=== PATIENT | male | born 1980 | race Caucasian/White ===

== ENCOUNTER 2017-07-02 13:38 | Emergency (ER) | payer MEDICAID ==
[~2017-07-02] VITALS: Ht 188 cm; Wt 108.4 kg
[~2017-07-02 13:38] MED LIST: ACET-929; ALBU18; ALPR1TAB7; METO25TA5; MORP1TAB13; PAROXETINE; TRAZ50TA2
[2017-07-02 15:00] VITALS: BP 118/55
== END 2017-07-02 16:30 | disposition home or self-care (01) ==
LOC: ER 13:38
DX: S63.502A Unspecified sprain of left wrist, initial encounter (principal); S60.222A Contusion of left hand, initial encounter; F17.210 Nicotine dependence, cigarettes, uncomplicated; J45.909 Unspecified asthma, uncomplicated; I10 Essential (primary) hypertension; Z79.899 Other long term (current) drug therapy; W22.8XXA Striking against or struck by other objects, initial encounter; Y93.89 Activity, other specified; Y92.89 Other specified places as the place of occurrence of the external cause; Y99.8 Other external cause status
CPT/HCPCS: 73110; 73130

== ENCOUNTER 2017-12-27 08:27 | Inpatient (IN) | payer MEDICAID ==
[~2017-12-27] VITALS: Ht 182.9 cm; Wt 108.8 kg
[2017-12-27] MEDS ORDERED: SODIUM CHLORIDE 0.9% 1,000 ML IVB ONE (08:41)
[2017-12-27] MEDS ORDERED: SODIUM CHLORIDE 0.9% 1,000 ML IV ONE ×2 (08:41→14:15)
[2017-12-27] MEDS ORDERED: KETOROLAC TROMETH 30 MG/ML 1ML VIAL IV ONE (08:45)
[2017-12-27] MEDS ORDERED: PROMETHAZINE HCL 25 MG/ML 1ML IV PRN (08:45)
[2017-12-27] MEDS ORDERED: metroNIDAZOLE 500MG/100ML 100 ML IV ONE (09:30)
[2017-12-27 11:50] LABS: Basophils # (auto) 0 uL; Basophils % (auto) 0.4 % (0.0-2.0); Eosinophils # (auto) 0 uL; Eosinophils % (auto) 0.3 % (0.0-7.0); Hematocrit 52.4 % (41.0-53.0); Lymphocytes # (auto) 1.2 uL; Lymphocytes % (auto) 14.2 % (10.0-50.0); Mean Corpuscular Hemoglobin 30.3 pg (28.0-32.0); Mean Corpuscular Hgb Conc. 34.4 g/dL (32.0-36.0); Mean Corpuscular Volume 88.1 fL (80.0-100.0); Monocytes # (auto) 0.6 uL; Monocytes % (auto) 7.5 % (0.0-12.0); Neutrophils # (auto) 6.3 uL; Neutrophils % (auto) 77.6 % (37.0-80.0); Nucleated Red Blood Cells % 0.2 %; Platelet Count (auto) 179 10^3/uL (140-450); Red Blood Cells 5.95 10^6/uL (4.5-5.90); Red Cell Distribution Width 14.2 % (11.8-14.3); White Blood Cell 8.1 10^3/uL (4.4-10.8)
[2017-12-27 11:59] LABS: INR 0.96 (0.9-1.15); Partial Thromboplastin Time 28.8 sec (23.78-33.04); Prothrombin Time 10.3 sec (9.27-12.13)
[2017-12-27 12:07] LABS: Alanine Aminotransferase 54 U/L (16-61); Albumin 3.7 g/dL (3.4-5.0); Alkaline Phosphatase 61 U/L (45-117); Amylase 75 U/L (25-115); Anion Gap 10 (5-15); Aspartate Aminotransferase 22 U/L (15-37); BUN/Creatinine Ratio 8.1; Bilirubin, Total 0.4 mg/dL (0.2-1.0); Blood Urea Nitrogen 6 mg/dL (7-18); Calcium 8.9 mg/dL (8.5-10.1); Carbon Dioxide 23 mmol/L (21-32); Chloride 108 mmol/L (98-107); GFR African American 155 mL/min; GFR Non-African American 128 mL/min; Glucose 91 mg/dL (74-106); Lipase 185 U/L (73-393); Potassium 3.5 mmol/L (3.5-5.1); Sodium 141 mmol/L (136-145); Total Protein 7.9 g/dL (6.4-8.2)
[2017-12-27 12:22] LABS: Urine Bacteria NONE SEEN /hpf (None Seen); Urine Blood Negative /uL (Negative); Urine Mucus FEW (None Seen); Urine Specific Gravity 1.024 (1.001-1.035); Urine WBC 3 /hpf (0 - 3)
[2017-12-27 12:39] LABS: Amphetamine Screen, Urine POSITIVE (NEGATIVE); Barbiturate Scree,Urine NEGATIVE (NEGATIVE); Benzodiazephine Screen, Urine POSITIVE (NEGATIVE); Cannabinoid Screen, Urine POSITIVE (NEGATIVE); Cocaine Screen, Urine NEGATIVE (NEGATIVE); Opiate Scree,Urine NEGATIVE (NEGATIVE); Phencyclidine Screen, Urine NEGATIVE (NEGATIVE)
[2017-12-27] MEDS ORDERED: cefTRIAXone 1GM/10ml IVPUSH 10 ML IV ONE (14:00)
[2017-12-27] MEDS ORDERED: NITROGLYCERIN 0.4 MG SL TAB SL PRN (14:15)
[2017-12-27] MEDS ORDERED: MORPHINE SULF(PF) 0.5MG/ML 10ML VIAL IV PRN (14:15)
[2017-12-27] MEDS ORDERED: TEMAZEPAM 15 MG CAP PO PRN (14:15)
[2017-12-27] MEDS ORDERED: ACETAMINOPHEN 325 MG TAB PO PRN (14:15)
[2017-12-27] MEDS ORDERED: DOCUSATE SOD 100 MG CAP PO PRN (14:15)
[2017-12-27] MEDS ORDERED: NALBUPHINE HCL 10 MG/1ml INJECTION IV PRN (14:30)
[2017-12-27] MEDS: SODIUM CHLORIDE 0.9% 1,000 ML IV SCH (15:29)
[2017-12-27 15:33] LABS: Lactic Acid w/Reflex 2.6 mmol/L (0.4-2.0)
[2017-12-27] MEDS ORDERED: GOLYTELY 4L KIT PO ONE (15:45)
[2017-12-27] MEDS: HYDROcodone-ACET 5/325MG TAB PO PRN ×2 (16:55→21:12)
[2017-12-27] MEDS: ONDANSETRON HCL 4 MG/2 ML VIAL IV PRN ×2 (16:55→21:15)
[2017-12-27] MEDS: ALPRAZolam 0.5 MG TAB PO PRN (17:10)
[2017-12-27 17:32] VITALS: BP 136/88
[2017-12-27] MEDS: ALBUTEROL SULF 2.5 MG/0.5ML(0.5%) NEB SOLN NEB PRN (17:35)
[2017-12-27] MEDS ORDERED: MONT5CHW17 PO (18:40)
[2017-12-27] MEDS ORDERED: FLUT110A INH (18:40)
[2017-12-27] MEDS ORDERED: CHOL20007 PO (18:40)
[2017-12-27] MEDS ORDERED: AMPH10TA21 PO (18:40)
[2017-12-27] MEDS ORDERED: VEN75XRT PO (18:40)
[2017-12-27] MEDS ORDERED: BREX1TAB2 PO (18:41)
[2017-12-27 19:45] VITALS: BP 136/88
[2017-12-27] MEDS: VENLAFAXINE HCL 25MG TABLET PO SCH (21:13)
[2017-12-27] MEDS: metroNIDAZOLE 500MG/100ML 100 ML IV SCH (21:14)
[2017-12-27] MEDS: FAMOTIDINE 20 MG TAB PO SCH (21:14)
[2017-12-27] MEDS: DEXTROAMPHETAMINE PO SCH (21:33)
[2017-12-27] MEDS: AMPHETAMINE PO SCH (21:33)
[2017-12-27 22:00] VITALS: BP 129/79
[2017-12-28] MEDS: ALPRAZolam 0.5 MG TAB PO PRN ×3 (01:08→21:08)
[2017-12-28] MEDS: SODIUM CHLORIDE 0.9% 1,000 ML IV SCH ×3 (04:58→15:13)
[2017-12-28 05:00] VITALS: BP 127/67
[2017-12-28] MEDS: HYDROcodone-ACET 5/325MG TAB PO PRN ×3 (05:08→21:09)
[2017-12-28] MEDS: ONDANSETRON HCL 4 MG/2 ML VIAL IV PRN (05:09)
[2017-12-28] MEDS: DEXTROAMPHETAMINE PO SCH ×3 (05:36→21:03)
[2017-12-28] MEDS: AMPHETAMINE PO SCH ×3 (05:36→21:03)
[2017-12-28 05:37] LABS: Basophils # (auto) 0 uL; Basophils % (auto) 0.5 % (0.0-2.0); Eosinophils # (auto) 0.1 uL; Eosinophils % (auto) 1.5 % (0.0-7.0); Hematocrit 43.6 % (41.0-53.0); Hemoglobin 14.9 g/dL (13.5-17.5); Lymphocytes % (auto) 36.4 % (10.0-50.0); Mean Corpuscular Hemoglobin 30.7 pg (28.0-32.0); Mean Corpuscular Hgb Conc. 34.3 g/dL (32.0-36.0); Mean Corpuscular Volume 89.7 fL (80.0-100.0); Monocytes # (auto) 0.7 uL; Monocytes % (auto) 12.4 % (0.0-12.0); Neutrophils # (auto) 2.7 uL; Neutrophils % (auto) 49.2 % (37.0-80.0); Nucleated Red Blood Cells % 0.1 %; Platelet Count (auto) 151 10^3/uL (140-450); Red Blood Cells 4.86 10^6/uL (4.5-5.90); Red Cell Distribution Width 13.8 % (11.8-14.3); White Blood Cell 5.6 10^3/uL (4.4-10.8)
[2017-12-28] MEDS: metroNIDAZOLE 500MG/100ML 100 ML IV SCH ×3 (05:37→21:02)
[2017-12-28] MEDS: VENLAFAXINE HCL 25MG TABLET PO SCH ×3 (05:37→21:03)
[2017-12-28 05:59] LABS: Albumin 3.1 g/dL (3.4-5.0); BUN/Creatinine Ratio 7.9; Bilirubin, Total 0.2 mg/dL (0.2-1.0); Calcium 8.3 mg/dL (8.5-10.1); Potassium 3.9 mmol/L (3.5-5.1); Total Protein 6.5 g/dL (6.4-8.2)
[2017-12-28] MEDS ORDERED: GOLYTELY 4L KIT PO ONE (06:00)
[2017-12-28] MEDS ORDERED: SODIUM CHLORIDE LOCK 10 ML ONE (08:43)
[2017-12-28] MEDS ORDERED: diphenhdrAMINE HCL 50 MG/1 ML VL ONE (08:44)
[2017-12-28 09:00] VITALS: BP 112/77
[2017-12-28] MEDS: cefTRIAXone 1GM/10ml IVPUSH 10 ML IV SCH (09:24)
[2017-12-28] MEDS: ALBUTEROL SULF 2.5 MG/0.5ML(0.5%) NEB SOLN NEB PRN ×3 (09:32→20:45)
[2017-12-28] MEDS: FAMOTIDINE 20 MG TAB PO SCH ×2 (10:00→21:03)
[2017-12-28] MEDS: METOPROLOL SUCCINATE XL 50 MG TAB PO SCH (10:00)
[2017-12-28] MEDS: MIDAZOLAM HCL 5 MG/ML-1ML VIAL ONE ×3 (11:17→11:24)
[2017-12-28] MEDS: fentaNYL CITRATE 100 MCG/2 ML VL ONE ×2 (11:17→11:20)
[2017-12-28] MEDS ORDERED: MIDAZOLAM HCL 5 MG/ML-1ML VIAL ONE (11:20)
[2017-12-28] MEDS ORDERED: fentaNYL CITRATE 100 MCG/2 ML VL ONE (11:20)
[2017-12-28 13:00] VITALS: BP 117/74
[2017-12-28] MEDS: BREXPIPRAZOLE 3 MG PO SCH (16:54)
[2017-12-28] MEDS: MULTIPLE VITAMIN TAB PO SCH (16:54)
[2017-12-28 16:56] VITALS: BP 133/80
[2017-12-28] MEDS ORDERED: SODIUM CHLORIDE 0.9% 500 ML IV ONE (17:45)
[2017-12-29 05:29] VITALS: BP 119/65
[2017-12-29] MEDS: DEXTROAMPHETAMINE PO SCH ×3 (05:47→21:17)
[2017-12-29] MEDS: SODIUM CHLORIDE 0.9% 1,000 ML IV SCH ×3 (05:47→19:54)
[2017-12-29] MEDS: AMPHETAMINE PO SCH ×3 (05:47→21:17)
[2017-12-29] MEDS: metroNIDAZOLE 500MG/100ML 100 ML IV SCH ×2 (05:47→14:16)
[2017-12-29] MEDS: VENLAFAXINE HCL 25MG TABLET PO SCH ×3 (05:48→21:18)
[2017-12-29 06:02] LABS: Basophils # (auto) 0 uL; Basophils % (auto) 0.4 % (0.0-2.0); Eosinophils # (auto) 0.1 uL; Eosinophils % (auto) 1.8 % (0.0-7.0); Hematocrit 41.6 % (41.0-53.0); Hemoglobin 14.2 g/dL (13.5-17.5); Lymphocytes # (auto) 2.1 uL; Lymphocytes % (auto) 37.4 % (10.0-50.0); Mean Corpuscular Hemoglobin 30.4 pg (28.0-32.0); Mean Corpuscular Volume 89.4 fL (80.0-100.0); Monocytes # (auto) 0.5 uL; Monocytes % (auto) 9.7 % (0.0-12.0); Neutrophils # (auto) 2.8 uL; Neutrophils % (auto) 50.7 % (37.0-80.0); Platelet Count (auto) 170 10^3/uL (140-450); Red Blood Cells 4.66 10^6/uL (4.5-5.90); Red Cell Distribution Width 13.7 % (11.8-14.3); White Blood Cell 5.6 10^3/uL (4.4-10.8)
[2017-12-29 06:21] LABS: Potassium 3.7 mmol/L (3.5-5.1)
[2017-12-29] MEDS: HYDROcodone-ACET 5/325MG TAB PO PRN ×2 (06:24→23:12)
[2017-12-29 06:34] LABS: Albumin 2.9 g/dL (3.4-5.0); Calcium 8.1 mg/dL (8.5-10.1)
[2017-12-29 06:36] LABS: Bilirubin, Total 0.2 mg/dL (0.2-1.0); Total Protein 6.2 g/dL (6.4-8.2)
[2017-12-29] MEDS: ALBUTEROL SULF 2.5 MG/0.5ML(0.5%) NEB SOLN NEB PRN ×2 (07:58→15:32)
[2017-12-29 08:00] VITALS: BP 125/72
[2017-12-29] MEDS: BOOST PLUS 8 ounce PO SCH ×3 (08:00→18:00)
[2017-12-29] MEDS: cefTRIAXone 1GM/10ml IVPUSH 10 ML IV SCH (09:27)
[2017-12-29] MEDS: FAMOTIDINE 20 MG TAB PO SCH ×2 (09:27→21:18)
[2017-12-29] MEDS: MULTIPLE VITAMIN TAB PO SCH (09:27)
[2017-12-29] MEDS: METOPROLOL SUCCINATE XL 50 MG TAB PO SCH (09:27)
[2017-12-29] MEDS: BREXPIPRAZOLE 3 MG PO SCH (10:00)
[2017-12-29] MEDS: ALPRAZolam 0.5 MG TAB PO PRN ×2 (11:17→20:12)
[2017-12-29 12:00] VITALS: BP 132/73
[2017-12-29] MEDS ORDERED: ALBUTEROL SULF 2.5 MG/0.5ML(0.5%) NEB SOLN NEB PRN (15:45)
[2017-12-29] MEDS ORDERED: PHENYLEPHRINE HCL 0.5 % NASAL SPRAY 15ML PRN (15:45)
[2017-12-29 17:00] VITALS: BP 128/85
[2017-12-29] MEDS: ALBUTEROL SULF 2.5 MG/0.5ML(0.5%) NEB SOLN NEB SCH (18:21)
[2017-12-29] MEDS: metroNIDAZOLE 500 MG TAB PO SCH ×2 (19:53→23:12)
[2017-12-29 22:38] VITALS: BP 154/80
[2017-12-30] MEDS: ALBUTEROL SULF 2.5 MG/0.5ML(0.5%) NEB SOLN NEB SCH ×3 (00:14→11:08)
[2017-12-30] MEDS: SODIUM CHLORIDE 0.9% 1,000 ML IV SCH (00:47)
[2017-12-30 05:37] LABS: Basophils # (auto) 0 uL; Basophils % (auto) 0.5 % (0.0-2.0); Eosinophils # (auto) 0.1 uL; Eosinophils % (auto) 1.7 % (0.0-7.0); Hematocrit 44.9 % (41.0-53.0); Hemoglobin 15.4 g/dL (13.5-17.5); Lymphocytes # (auto) 2.4 uL; Lymphocytes % (auto) 36.8 % (10.0-50.0); Mean Corpuscular Hemoglobin 30.3 pg (28.0-32.0); Mean Corpuscular Hgb Conc. 34.3 g/dL (32.0-36.0); Mean Corpuscular Volume 88.3 fL (80.0-100.0); Monocytes # (auto) 0.5 uL; Monocytes % (auto) 7.6 % (0.0-12.0); Neutrophils # (auto) 3.5 uL; Neutrophils % (auto) 53.4 % (37.0-80.0); Platelet Count (auto) 186 10^3/uL (140-450); Red Blood Cells 5.08 10^6/uL (4.5-5.90); Red Cell Distribution Width 13.9 % (11.8-14.3); White Blood Cell 6.6 10^3/uL (4.4-10.8)
[2017-12-30] MEDS: VENLAFAXINE HCL 25MG TABLET PO SCH (05:56)
[2017-12-30] MEDS: AMPHETAMINE PO SCH (05:57)
[2017-12-30] MEDS: metroNIDAZOLE 500 MG TAB PO SCH ×2 (05:57→11:37)
[2017-12-30] MEDS: DEXTROAMPHETAMINE PO SCH (05:57)
[2017-12-30 05:59] VITALS: BP 121/79
[2017-12-30 06:09] LABS: Calcium 8.5 mg/dL (8.5-10.1); Potassium 3.7 mmol/L (3.5-5.1)
[2017-12-30] MEDS: BOOST PLUS 8 ounce PO SCH (08:00)
[2017-12-30] MEDS: ALPRAZolam 0.5 MG TAB PO PRN (08:23)
[2017-12-30] MEDS: HYDROcodone-ACET 5/325MG TAB PO PRN (08:23)
[2017-12-30 08:30] VITALS: BP 131/73
[2017-12-30] MEDS: cefTRIAXone 1GM/10ml IVPUSH 10 ML IV SCH (10:15)
[2017-12-30] MEDS: MULTIPLE VITAMIN TAB PO SCH (10:15)
[2017-12-30] MEDS: FAMOTIDINE 20 MG TAB PO SCH (10:15)
[2017-12-30] MEDS: METOPROLOL SUCCINATE XL 50 MG TAB PO SCH (10:15)
[2017-12-30 13:04] VITALS: BP 131/73
== END 2017-12-30 13:50 | disposition home or self-care (01) | DRG 720 ==
LOC: ER 08:27 → TELE 08:28 → TELE-CENTR 16:45
PROVIDERS: ADMIT Internal Medicine; ATTEND Internal Medicine
PROC: 0DBE8ZX Excision of Large Intestine, Via Natural or Artificial Opening Endoscopic, Diagnostic (ICD-10-PCS; 2017-12-28)
PROC: 0DBB8ZX Excision of Ileum, Via Natural or Artificial Opening Endoscopic, Diagnostic (ICD-10-PCS; principal; 2017-12-28 11:15)
DX: A41.9 Sepsis, unspecified organism (principal); A04.72 Enterocolitis due to Clostridium difficile, not specified as recurrent; E44.0 Moderate protein-calorie malnutrition; F12.10 Cannabis abuse, uncomplicated; E86.0 Dehydration; F90.9 Attention-deficit hyperactivity disorder, unspecified type; F17.210 Nicotine dependence, cigarettes, uncomplicated; F41.9 Anxiety disorder, unspecified; I10 Essential (primary) hypertension; J45.909 Unspecified asthma, uncomplicated; K52.9 Noninfective gastroenteritis and colitis, unspecified; K57.90 Diverticulosis of intestine, part unspecified, without perforation or abscess without bleeding; K64.8 Other hemorrhoids; F31.9 Bipolar disorder, unspecified; Z91.010 Allergy to peanuts; Z68.32 Body mass index [BMI] 32.0-32.9, adult
CPT/HCPCS: 36415; 74176; 80048; 80053; 80307; 81001; 82150; 83605; 83690; 84484; 85025; 85610; 85730; 86850; 86900; 86901; 87040; 87045; 87493; 87899; 93005; 94640; 96361; 96365; 96375; J1885; J2250; J2405; J3490

== ENCOUNTER 2019-06-30 03:19 | Emergency (ER) | payer MEDICAID ==
[~2019-06-30] VITALS: Ht 188 cm; Wt 122.9 kg
[~2019-06-30 03:19] MED LIST changes: +ALBUTEROL SULF 2.5 MG/0.5ML(0.5%) NEB SOLN NEB ONE; +AMPH10TA2 PO; +BREX1TAB2 PO; +CHOL20007 PO; +FLUT110A INH; +IPRATROPIUM BROM 0.5 MG/2.5ML INH SOL NEB ONE; +MONT5CHW17 PO; -MORP1TAB13; -TRAZ50TA2; +VENL75CA3 PO
[2019-06-30 03:59] LABS: Basophils # (auto) 0.1 uL; Basophils % (auto) 0.7 % (0.0-2.0); Eosinophils # (auto) 0.2 uL; Eosinophils % (auto) 3.3 % (0.0-7.0); Hematocrit 48.4 % (41.0-53.0); Hemoglobin 16.6 g/dL (13.5-17.5); Lymphocytes # (auto) 2.6 uL; Mean Corpuscular Hgb Conc. 34.3 g/dL (32.0-36.0); Mean Corpuscular Volume 90.4 fL (80.0-100.0); Monocytes # (auto) 0.6 uL; Monocytes % (auto) 9.1 % (0.0-12.0); Neutrophils # (auto) 3.5 uL; Neutrophils % (auto) 49.9 % (37.0-80.0); Nucleated Red Blood Cells % 0.1 %; Platelet Count (auto) 210 10^3/uL (140-450); Red Blood Cells 5.36 10^6/uL (4.5-5.90); Red Cell Distribution Width 13.6 % (11.8-14.3)
[2019-06-30 04:00] VITALS: BP 138/106
[2019-06-30 04:14] LABS: Potassium 4.7 mmol/L (3.5-5.1)
[2019-06-30 04:20] LABS: Albumin 3.8 g/dL (3.4-5.0); BUN/Creatinine Ratio 15.6; Bilirubin, Total 0.3 mg/dL (0.2-1.0); Calcium 8.9 mg/dL (8.5-10.1); Total Protein 7.9 g/dL (6.4-8.2)
== END 2019-06-30 05:45 | disposition left against medical advice (07) ==
LOC: ER 03:21
DX: R06.02 Shortness of breath (principal); Z53.21 Procedure and treatment not carried out due to patient leaving prior to being seen by health care provider
CPT/HCPCS: 36415; 71045; 80053; 85025; 94640

== ENCOUNTER 2020-02-06 03:51 | Emergency (ER) | payer MEDICAID ==
[~2020-02-06] VITALS: Ht 188 cm; Wt 115.2 kg
[~2020-02-06 03:51] MED LIST changes: -ALBUTEROL SULF 2.5 MG/0.5ML(0.5%) NEB SOLN NEB ONE; -IPRATROPIUM BROM 0.5 MG/2.5ML INH SOL NEB ONE
[2020-02-06] MEDS ORDERED: HYDROcodone-ACET 10/325MG TAB PO ONE (07:45)
[2020-02-06 07:48] VITALS: BP 117/76
== END 2020-02-06 09:23 | disposition home or self-care (01) ==
LOC: ER 03:55
DX: L03.115 Cellulitis of right lower limb (principal); F41.9 Anxiety disorder, unspecified; J45.909 Unspecified asthma, uncomplicated; F32.9 Major depressive disorder, single episode, unspecified; I10 Essential (primary) hypertension; F17.210 Nicotine dependence, cigarettes, uncomplicated; Z91.010 Allergy to peanuts; Z79.899 Other long term (current) drug therapy
CPT/HCPCS: 73610; 73630; 93971

== ENCOUNTER 2020-05-17 09:24 | Emergency (ER) | payer MEDICAID ==
[~2020-05-17] VITALS: Ht 188 cm; Wt 113.4 kg
[2020-05-17 09:41] VITALS: BP 123/71
[2020-05-17] MEDS ORDERED: PENICILLIN G BENZ 1200000 UNITS/2 ML SYRG IM ONE (11:15)
== END 2020-05-17 11:28 | disposition home or self-care (01) ==
LOC: ER 09:24
DX: A53.9 Syphilis, unspecified (principal); J45.909 Unspecified asthma, uncomplicated; I10 Essential (primary) hypertension; F17.210 Nicotine dependence, cigarettes, uncomplicated
CPT/HCPCS: 96372; 99283; J0561

== ENCOUNTER 2020-05-24 07:29 | Emergency (ER) | payer MEDICAID ==
[~2020-05-24] VITALS: Ht 188 cm; Wt 108.0 kg
[2020-05-24 07:38] VITALS: BP 114/78
[2020-05-24] MEDS ORDERED: PENICILLIN G BENZ 1200000 UNITS/2 ML SYRG IM ONE (08:00)
== END 2020-05-24 09:02 | disposition home or self-care (01) ==
LOC: ER 07:29
DX: A53.9 Syphilis, unspecified (principal); J45.909 Unspecified asthma, uncomplicated; I10 Essential (primary) hypertension; F17.210 Nicotine dependence, cigarettes, uncomplicated; F12.10 Cannabis abuse, uncomplicated
CPT/HCPCS: 96372; 99283; J0561

== ENCOUNTER 2020-05-31 07:02 | Emergency (ER) | payer MEDICAID ==
[~2020-05-31] VITALS: Ht 182.9 cm; Wt 95.3 kg
[2020-05-31] MEDS ORDERED: PENICILLIN G BENZ 1200000 UNITS/2 ML SYRG IM ONE (07:45)
[2020-05-31] MEDS ORDERED: KETOROLAC TROMETH 60MG/2ML VIAL IM ONE (07:45)
[2020-05-31 07:56] VITALS: BP 128/78
== END 2020-05-31 08:25 | disposition home or self-care (01) ==
LOC: ER 07:02
DX: A53.9 Syphilis, unspecified (principal); J45.909 Unspecified asthma, uncomplicated; I10 Essential (primary) hypertension; F17.210 Nicotine dependence, cigarettes, uncomplicated; Z91.010 Allergy to peanuts
CPT/HCPCS: 96372; 99283; J0561

== ENCOUNTER 2020-08-31 03:32 | Emergency (ER) | payer MEDICAID ==
[~2020-08-31] VITALS: Ht 188 cm; Wt 104.3 kg
[~2020-08-31 03:32] MED LIST changes: -MONT5CHW17 PO; +MONT5CHW23 PO
[2020-08-31] MEDS ORDERED: ONDANSETRON HCL 4 MG/2 ML VIAL IV ONE (04:15)
[2020-08-31 04:42] LABS: Urine Bacteria MOD /hpf (None Seen); Urine Blood 2+ /uL (Negative); Urine Hyaline Cast MANY /lpf (0 - 2); Urine Mucus FEW (None Seen); Urine Specific Gravity 1.028 (1.001-1.035); Urine WBC 6 /hpf (0 - 3); Urine WBC Clumps PRESENT /hpf (None Seen)
[2020-08-31 04:59] LABS: Amphetamine Screen, Urine POSITIVE (NEGATIVE); Barbiturate Scree,Urine NEGATIVE (NEGATIVE); Benzodiazephine Screen, Urine POSITIVE (NEGATIVE); Cannabinoid Screen, Urine POSITIVE (NEGATIVE); Cocaine Screen, Urine NEGATIVE (NEGATIVE); Opiate Scree,Urine NEGATIVE (NEGATIVE); Phencyclidine Screen, Urine NEGATIVE (NEGATIVE)
[2020-08-31 05:37] LABS: Basophils # (auto) 0 10 ^3/uL (0-0.2); Basophils % (auto) 0.5 % (0.0-2.0); Eosinophils # (auto) 0.1 10 ^3/uL (0-0.8); Eosinophils % (auto) 0.9 % (0.0-7.0); Hematocrit 46.8 % (41.0-53.0); Hemoglobin 16.6 g/dL (13.5-17.5); Lymphocytes # (auto) 2.2 10 ^3/uL (0.4-5.4); Lymphocytes % (auto) 22.9 % (10.0-50.0); Mean Corpuscular Hgb Conc. 35.5 g/dL (32.0-36.0); Mean Corpuscular Volume 87.3 fL (80.0-100.0); Monocytes # (auto) 0.5 10 ^3/uL (0-1.3); Monocytes % (auto) 5.7 % (0.0-12.0); Neutrophils # (auto) 6.8 10 ^3/uL (1.6-8.6); Nucleated Red Blood Cells % 0.1 %; Platelet Count (auto) 209 10^3/uL (140-450); Red Blood Cells 5.36 10^6/uL (4.5-5.90); Red Cell Distribution Width 13.7 % (11.8-14.3); White Blood Cell 9.7 10^3/uL (4.4-10.8)
[2020-08-31 05:55] LABS: Albumin 3.8 g/dL (3.4-5.0); BUN/Creatinine Ratio 12.8; Calcium 8.9 mg/dL (8.5-10.1); Potassium 3.7 mmol/L (3.5-5.1)
[2020-08-31 05:58] LABS: Bilirubin, Total 0.4 mg/dL (0.2-1.0); Total Protein 7.7 g/dL (6.4-8.2)
[2020-08-31] MEDS ORDERED: IOHEXOL 300 MG/ML 100ML BOTTLE IJ ONE (07:34)
[2020-08-31 08:19] VITALS: BP 130/77
== END 2020-08-31 08:51 | disposition home or self-care (01) ==
LOC: ER 03:32
DX: R10.84 Generalized abdominal pain (principal); F19.10 Other psychoactive substance abuse, uncomplicated; F12.10 Cannabis abuse, uncomplicated; F17.210 Nicotine dependence, cigarettes, uncomplicated; J44.9 Chronic obstructive pulmonary disease, unspecified; I10 Essential (primary) hypertension; Z87.442 Personal history of urinary calculi
CPT/HCPCS: 36415; 74177; 80053; 80307; 81001; 83690; 85025; 96374; 99285; J2405; Q9967

== ENCOUNTER 2020-12-29 09:24 | Emergency (ER) | payer MEDICAID ==
[~2020-12-29] VITALS: Ht 188 cm; Wt 88.5 kg
[2020-12-29 10:04] LABS: Albumin 3.7 g/dL (3.4-5.0); Calcium 8.5 mg/dL (8.5-10.1)
[2020-12-29 10:07] LABS: BUN/Creatinine Ratio 10.5; Bilirubin, Total 0.4 mg/dL (0.2-1.0); Total Protein 7.6 g/dL (6.4-8.2)
[2020-12-29 10:14] LABS: Basophils # (auto) 0 10 ^3/uL (0-0.2); Basophils % (auto) 0.5 % (0.0-2.0); Eosinophils # (auto) 0 10 ^3/uL (0-0.8); Eosinophils % (auto) 0.6 % (0.0-7.0); Hematocrit 47.4 % (41.0-53.0); Lymphocytes # (auto) 1.8 10 ^3/uL (0.4-5.4); Lymphocytes % (auto) 23.7 % (10.0-50.0); Mean Corpuscular Hemoglobin 30.2 pg (28.0-32.0); Mean Corpuscular Hgb Conc. 33.7 g/dL (32.0-36.0); Mean Corpuscular Volume 89.4 fL (80.0-100.0); Monocytes # (auto) 0.4 10 ^3/uL (0-1.3); Monocytes % (auto) 4.7 % (0.0-12.0); Neutrophils # (auto) 5.4 10 ^3/uL (1.6-8.6); Neutrophils % (auto) 70.5 % (37.0-80.0); Nucleated Red Blood Cells % 0.2 %; Platelet Count (auto) 190 10^3/uL (140-450); Red Cell Distribution Width 13.7 % (11.8-14.3); White Blood Cell 7.6 10^3/uL (4.4-10.8)
[2020-12-29 11:11] LABS: Urine Bacteria NONE SEEN /hpf (None Seen); Urine Blood Negative /uL (Negative); Urine Specific Gravity 1.007 (1.001-1.035); Urine WBC <1 /hpf (0 - 3)
[2020-12-29 11:13] LABS: Alcohol, Urine < 3.0 mg/dL (0-10); Amphetamine Screen, Urine NEGATIVE (NEGATIVE); Barbiturate Scree,Urine NEGATIVE (NEGATIVE); Benzodiazephine Screen, Urine POSITIVE (NEGATIVE); Cannabinoid Screen, Urine POSITIVE (NEGATIVE); Cocaine Screen, Urine NEGATIVE (NEGATIVE); Phencyclidine Screen, Urine NEGATIVE (NEGATIVE)
[2020-12-29 11:20] LABS: Opiate Scree,Urine NEGATIVE (NEGATIVE)
[2020-12-29 14:02] VITALS: BP 117/85
[2020-12-29] MEDS ORDERED: KETOROLAC TROMETH 60MG/2ML VIAL IM ONE (14:45)
[2020-12-29] MEDS ORDERED: ONDANSETRON ODT 4 MG TAB PO ONE (14:45)
== END 2020-12-29 17:00 | disposition home or self-care (01) ==
LOC: ER 09:24
DX: H81.13 Benign paroxysmal vertigo, bilateral (principal); R51.9 Headache, unspecified; F17.210 Nicotine dependence, cigarettes, uncomplicated; F12.10 Cannabis abuse, uncomplicated; J45.909 Unspecified asthma, uncomplicated; F41.9 Anxiety disorder, unspecified; I10 Essential (primary) hypertension
CPT/HCPCS: 36415; 70450; 80053; 80307; 81001; 85025; 93005; 96372; 99285; J1885; Q0162

== ENCOUNTER 2021-11-20 09:19 | Inpatient (IN) | payer MEDICAID ==
[~2021-11-20] VITALS: Ht 188 cm; Wt 115.3 kg
[2021-11-20] MEDS ORDERED: ONDANSETRON HCL 4 MG/2 ML VIAL IV ONE (10:00)
[2021-11-20] MEDS ORDERED: SODIUM CHLORIDE 0.9% 1,000 ML IVB ONE (10:00)
[2021-11-20] MEDS ORDERED: MORPHINE SULFATE 4 MG/ML SYR/VIAL IV ONE (10:00)
[2021-11-20 10:57] LABS: Basophils # (auto) 0.1 10 ^3/uL (0-0.2); Basophils % (auto) 0.8 % (0.0-2.0); Eosinophils # (auto) 0.1 10 ^3/uL (0-0.8); Eosinophils % (auto) 0.4 % (0.0-7.0); Hemoglobin 15.3 g/dL (13.5-17.5); Lymphocytes # (auto) 1.6 10 ^3/uL (0.4-5.4); Lymphocytes % (auto) 10.8 % (10.0-50.0); Mean Corpuscular Hemoglobin 30.1 pg (28.0-32.0); Mean Corpuscular Volume 88.6 fL (80.0-100.0); Monocytes % (auto) 6.8 % (0.0-12.0); Neutrophils # (auto) 12.3 10 ^3/uL (1.6-8.6); Neutrophils % (auto) 81.2 % (37.0-80.0); Nucleated Red Blood Cells % 0.1 %; Red Blood Cells 5.09 10^6/uL (4.5-5.90); White Blood Cell 15.1 10^3/uL (4.4-10.8)
[2021-11-20 11:16] LABS: Albumin 3.7 g/dL (3.4-5.0); Calcium 8.5 mg/dL (8.5-10.1); Potassium 3.9 mmol/L (3.5-5.1)
[2021-11-20 11:21] LABS: Bilirubin, Total 0.4 mg/dL (0.2-1.0); Total Protein 7.4 g/dL (6.4-8.2)
[2021-11-20] MEDS ORDERED: KETOROLAC TROMETH 30 MG/ML 1ML VIAL IV ONE (11:45)
[2021-11-20 13:20] LABS: Urine Bacteria MANY /hpf (None Seen); Urine Blood 1+ /uL (Negative); Urine Budding Yeast FEW /hpf (None Seen); Urine Specific Gravity 1.022 (1.001-1.035); Urine Sperm PRESENT /hpf (None Seen); Urine WBC 3 /hpf (0 - 3)
[2021-11-20] MEDS ORDERED: cefTRIAXone 1GM/50ML D5W 50 ML IV ONE (13:30)
[2021-11-20] MEDS ORDERED: MORPHINE SULFATE INJ 2 MG/ml SYRG IV PRN (15:00)
[2021-11-20] MEDS ORDERED: NITROGLYCERIN 0.4 MG SL TAB SL PRN (15:00)
[2021-11-20] MEDS ORDERED: ACETAMINOPHEN 325 MG TAB PO PRN (15:00)
[2021-11-20] MEDS ORDERED: ONDANSETRON HCL 4 MG/2 ML VIAL IV PRN (15:00)
[2021-11-20] MEDS: SODIUM CHLORIDE 0.9% 1,000 ML IV SCH (15:48)
[2021-11-20 17:00] VITALS: BP 115/82
[2021-11-20 17:28] VITALS: BP 115/82
[2021-11-20] MEDS: HYDROcodone-ACET 5/325MG TAB PO PRN ×2 (17:42→22:06)
[2021-11-20] MEDS: TAMSULOSIN HYDROCHLORIDE 0.4 MG CAP PO SCH (17:43)
[2021-11-20 22:00] VITALS: BP 95/56
[2021-11-21] MEDS: SODIUM CHLORIDE 0.9% 1,000 ML IV SCH ×3 (00:14→17:24)
[2021-11-21] MEDS: MORPHINE SULFATE INJ 2 MG/ml SYRG IV PRN ×2 (01:35→05:52)
[2021-11-21] MEDS: HYDROcodone-ACET 5/325MG TAB PO PRN (03:38)
[2021-11-21 05:00] VITALS: BP 110/65
[2021-11-21 06:21] LABS: Basophils # (auto) 0 10 ^3/uL (0-0.2); Basophils % (auto) 0.4 % (0.0-2.0); Eosinophils # (auto) 0.2 10 ^3/uL (0-0.8); Eosinophils % (auto) 1.4 % (0.0-7.0); Hemoglobin 14.7 g/dL (13.5-17.5); Lymphocytes # (auto) 1.6 10 ^3/uL (0.4-5.4); Mean Corpuscular Hemoglobin 30.9 pg (28.0-32.0); Mean Corpuscular Hgb Conc. 34.9 g/dL (32.0-36.0); Mean Corpuscular Volume 88.6 fL (80.0-100.0); Monocytes # (auto) 1.2 10 ^3/uL (0-1.3); Monocytes % (auto) 10.2 % (0.0-12.0); Neutrophils # (auto) 8.6 10 ^3/uL (1.6-8.6); Red Blood Cells 4.74 10^6/uL (4.5-5.90); White Blood Cell 11.7 10^3/uL (4.4-10.8)
[2021-11-21 06:32] LABS: Albumin 3.1 g/dL (3.4-5.0); Anion Gap 8 (5-15); Carbon Dioxide 20 mmol/L (21-32); Chloride 115 mmol/L (98-107); Glucose 98 mg/dL (74-106); Sodium 143 mmol/L (136-145)
[2021-11-21 06:37] LABS: Alkaline Phosphatase 49 U/L (45-117); BUN/Creatinine Ratio 9.7; Bilirubin, Total 0.4 mg/dL (0.2-1.0); Blood Urea Nitrogen 17 mg/dL (7-18); GFR African American 56 mL/min; GFR Non-African American 46 mL/min; Total Protein 6.2 g/dL (6.4-8.2)
[2021-11-21 06:59] LABS: Alanine Aminotransferase 43 U/L (16-61); Aspartate Aminotransferase 31 U/L (15-37)
[2021-11-21 08:00] VITALS: BP 130/81
[2021-11-21] MEDS ORDERED: MANNITOL FTV 25% 12.5 GM/50 ML 50 ML IV ONE (08:00)
[2021-11-21] MEDS ORDERED: SODIUM CHLORIDE 0.9% 1,000 ML IV ONE (08:00)
[2021-11-21] MEDS: KETOROLAC TROMETH 30 MG/ML 1ML VIAL IV PRN ×2 (09:51→20:12)
[2021-11-21] MEDS: cefTRIAXone 1GM/50ML D5W 50 ML IV SCH (09:52)
[2021-11-21 12:00] VITALS: BP 119/75
[2021-11-21 16:00] VITALS: BP 129/86
[2021-11-21] MEDS: TAMSULOSIN HYDROCHLORIDE 0.4 MG CAP PO SCH (18:47)
[2021-11-21 22:00] VITALS: BP 146/96
[2021-11-22] MEDS: MORPHINE SULFATE INJ 2 MG/ml SYRG IV PRN ×2 (01:02→07:45)
[2021-11-22] MEDS: SODIUM CHLORIDE 0.9% 1,000 ML IV SCH ×3 (01:58→16:47)
[2021-11-22 05:00] VITALS: BP 104/61
[2021-11-22] MEDS ORDERED: DOCUSATE SOD 100 MG CAP PO PRN (08:00)
[2021-11-22 08:10] VITALS: BP 150/96
[2021-11-22] MEDS: KETOROLAC TROMETH 30 MG/ML 1ML VIAL IV PRN (08:56)
[2021-11-22] MEDS: cefTRIAXone 1GM/50ML D5W 50 ML IV SCH (08:56)
[2021-11-22] MEDS ORDERED: VENLAFAXINE HCL 37.5mg XR cap PO SCH (10:00)
[2021-11-22 12:10] VITALS: BP 141/84
[2021-11-22] MEDS ORDERED: TOPI100T29 PO (12:22)
[2021-11-22] MEDS ORDERED: ESCI10TA PO (12:22)
[2021-11-22] MEDS ORDERED: LAMO25TA2 PO (12:22)
[2021-11-22] MEDS ORDERED: ARIP1TAB7 PO (12:24)
[2021-11-22] MEDS: ALPRAZolam 0.5 MG TAB PO SCH ×2 (13:54→22:19)
[2021-11-22] MEDS: lamoTRIgine 25 MG TAB PO SCH ×2 (13:54→22:17)
[2021-11-22] MEDS: HYDROmorphone HCL 2 MG/ML VL/or syr IV PRN ×3 (15:20→22:20)
[2021-11-22 16:10] VITALS: BP 134/90
[2021-11-22] MEDS: TAMSULOSIN HYDROCHLORIDE 0.4 MG CAP PO SCH (18:13)
[2021-11-22 22:00] VITALS: BP 124/71
[2021-11-22] MEDS ORDERED: TOPIRAMATE 100 MG TAB PO SCH (22:00)
[2021-11-23] MEDS: SODIUM CHLORIDE 0.9% 1,000 ML IV SCH ×3 (01:20→18:21)
[2021-11-23] MEDS: HYDROmorphone HCL 2 MG/ML VL/or syr IV PRN ×3 (01:46→15:27)
[2021-11-23 05:12] VITALS: BP 152/91
[2021-11-23 06:05] LABS: Basophils # (auto) 0.1 10 ^3/uL (0-0.2); Basophils % (auto) 0.5 % (0.0-2.0); Eosinophils # (auto) 0.1 10 ^3/uL (0-0.8); Eosinophils % (auto) 1.2 % (0.0-7.0); Hematocrit 40.9 % (41.0-53.0); Hemoglobin 14.3 g/dL (13.5-17.5); Lymphocytes # (auto) 2.1 10 ^3/uL (0.4-5.4); Lymphocytes % (auto) 19.8 % (10.0-50.0); Mean Corpuscular Hemoglobin 30.8 pg (28.0-32.0); Neutrophils # (auto) 7.1 10 ^3/uL (1.6-8.6); Neutrophils % (auto) 68.5 % (37.0-80.0); Nucleated Red Blood Cells % 0.1 %; Red Blood Cells 4.65 10^6/uL (4.5-5.90); Red Cell Distribution Width 13.7 % (11.8-14.3); White Blood Cell 10.4 10^3/uL (4.4-10.8)
[2021-11-23 06:26] LABS: Albumin 2.9 g/dL (3.4-5.0); Calcium 8.6 mg/dL (8.5-10.1); Potassium 3.7 mmol/L (3.5-5.1)
[2021-11-23 06:30] LABS: BUN/Creatinine Ratio 7.6
[2021-11-23 06:32] LABS: Bilirubin, Total 0.4 mg/dL (0.2-1.0); Total Protein 6.4 g/dL (6.4-8.2)
[2021-11-23 08:15] VITALS: BP 134/94
[2021-11-23] MEDS: cefTRIAXone 1GM/50ML D5W 50 ML IV SCH (08:36)
[2021-11-23] MEDS: KETOROLAC TROMETH 30 MG/ML 1ML VIAL IV PRN ×2 (09:00→18:37)
[2021-11-23] MEDS: ALPRAZolam 0.5 MG TAB PO SCH (09:43)
[2021-11-23] MEDS: lamoTRIgine 25 MG TAB PO SCH (09:43)
[2021-11-23 12:10] VITALS: BP 132/82
[2021-11-23 16:15] VITALS: BP 137/63
[2021-11-23] MEDS: TAMSULOSIN HYDROCHLORIDE 0.4 MG CAP PO SCH (18:22)
[2021-11-24] MEDS ORDERED: ABILIFY 10 MG PO SCH (10:00)
== END 2021-11-23 20:15 | disposition left against medical advice (07) | DRG 463 ==
LOC: ER 09:19 → OVERFLOW 14:59 → WEST WING 16:23
PROVIDERS: ADMIT Internal Medicine; ATTEND Internal Medicine
DX: N13.6 Pyonephrosis (principal); N17.0 Acute kidney failure with tubular necrosis; F17.210 Nicotine dependence, cigarettes, uncomplicated; F41.9 Anxiety disorder, unspecified; F32.A Depression, unspecified; I10 Essential (primary) hypertension; J45.909 Unspecified asthma, uncomplicated; F19.10 Other psychoactive substance abuse, uncomplicated; Z20.822 Contact with and (suspected) exposure to COVID-19; Z53.29 Procedure and treatment not carried out because of patient's decision for other reasons; Z91.010 Allergy to peanuts; Z83.3 Family history of diabetes mellitus; Z79.899 Other long term (current) drug therapy
CPT/HCPCS: 36415; 74176; 76775; 80053; 81001; 82150; 83690; 85025; 96361; 96374; 96375; G0378; J0696; J1885; J2405